=== PATIENT | male | born 1980 | race Caucasian/White ===

== ENCOUNTER 2017-01-18 12:31 | Emergency (ER) | payer BC ==
[~2017-01-18] VITALS: Ht 182.9 cm; Wt 60.7 kg
[~2017-01-18 12:31] MED LIST: CLINDAMYCIN HC300 MG PO; NAPROXEN500 MG PO; NOHOMEMEDS; PERCOCET 5/31 TABLET PO
[2017-01-18] MEDS ORDERED: MOTRIN800 MG PO (14:08)
[2017-01-18] MEDS ORDERED: FLEXERIL10 MG PO (14:08)
[2017-01-18] MEDS ORDERED: LIDODERM 5% P1 PATCH TD (14:08)
[2017-01-18 15:13] VITALS: BP 121/89
== END 2017-01-18 15:30 | disposition home or self-care (01) ==
LOC: EME 12:31
DX: S39.012A Strain of muscle, fascia and tendon of lower back, initial encounter (principal); M62.838 Other muscle spasm; M54.32 Sciatica, left side; X50.1XXA Overexertion from prolonged static or awkward postures, initial encounter
CPT/HCPCS: 72100; 99281; 99284; J1885